=== PATIENT | female | born 1950 | race Caucasian/White ===

== ENCOUNTER 2021-04-14 07:35 | Outpatient (CLI) | payer OTHER | END 2021-04-14 07:36 | disposition home or self-care (01) | LOC: NUCLEAR 07:35 | PROVIDERS: ATTEND Internal Medicine Cardiovascular Disease | DX: I20.9 Angina pectoris, unspecified (principal) ==

== ENCOUNTER 2023-05-14 10:56 | Outpatient (CLI) | payer OTHER | END 2023-05-14 10:58 | disposition home or self-care (01) | LOC: NUCLEAR 10:56 | PROVIDERS: ATTEND Internal Medicine Cardiovascular Disease | DX: I73.9 Peripheral vascular disease, unspecified (principal) ==